=== PATIENT | female | born 1990 | race African-American/Black ===

== ENCOUNTER 2017-12-07 23:44 | Observation (INO) | payer SELFPAY ==
[~2017-12-07] VITALS: Ht 144.8 cm; Wt 100.0 kg
[~2017-12-07 23:44] MED LIST: NOHOMEMEDS
[2017-12-08 00:51] LABS: BASOPHIL (%) 0.3 % (0-1); EOSINOPHIL (%) 4.1 % (0-5); EOSINOPHIL COUNT 0.5 K/uL (0-0.3); HEMATOCRIT 31.5 % (36.0-46.0); HEMOGLOBIN 9.1 G/DL (11.9-15.5); IMMATURE GRANULOCYTE (%) 0.5 % (0.0-0.7); LYMPHOCYTE (%) 23.5 % (15-42); LYMPHOCYTE COUNT 3.1 K/uL (1.0-2.8); MCH 20.3 PG (29.0-34.0); MCHC 28.9 G/DL (30.0-36.0); MCV 70.2 FL (83-99); NEUTROPHIL (%) 63.6 % (45-76); NEUTROPHIL COUNT 8.3 K/uL (1.8-6.4); PLATELET COUNT 326 K/uL (156-360); RBC DIS.WIDTH-CV 19.8 % (11.8-14.6); RBC DIS.WIDTH-SD 49.2 % (39-53); RED BLOOD COUNT 4.49 M/uL (3.80-5.20)
[2017-12-08 01:16] LABS: TROP-I INTERPRETATION NEGATIVE; TROPONIN-I < 0.01 ng/mL (0.0-0.30)
[2017-12-08 01:42] LABS: ALBUMIN 3.8 g/dL (3.2-4.8)
[2017-12-08 01:43] LABS: CHLORIDE 107 mEq/L (99-109); POTASSIUM 3.7 mEq/L (3.7-5.4); SODIUM 140 mEq/L (136-147)
[2017-12-08 01:45] LABS: GLUCOSE 109 mg/dL (70-99); TOTAL PROTEIN 7.2 g/dL (6.4-8.3)
[2017-12-08 01:47] LABS: TOTAL BILIRUBIN 0.2 mg/dL (0.0-1.0)
[2017-12-08 01:48] LABS: ALKALINE PHOSPHATASE 69 IU/L (3-129); CREATININE 0.8 mg/dL (0.6-1.3); GFR ESTIMATE (CALCULATED) > 59 mL/min/
[2017-12-08 01:50] LABS: AST (GOT) 14 IU/L (2-34); UREA NITROGEN (BUN) 11 mg/dL (9-23)
[2017-12-08 01:51] LABS: ALT (GPT) 17 IU/L (3-49)
[2017-12-08 01:59] LABS: QUANTITATIVE HCG < 4.0 MIU/ML
[2017-12-08 04:30] LABS: BASE EXCESS -0.5 mEq/L (-3 to +3); BICARBONATE 24.9 mEq/L (22-26); COMMENTS - BLOOD GASES A+C+; DEVICE NC; METHEMOGLOBIN 0.9 % (0-1.5); O2 FLOW 4 L/MIN; PCO2 43 mm Hg (35-45); PO2 94 mm Hg (80-100); SITE LR; pH 7.37 (7.35-7.45)
[2017-12-08 07:27] LABS: IRON 19 MCG/DL (35-150); TRANSFERRIN (TIBC) 395.7 mg/dL (215-380); TRANSFERRIN SATUR. 5 % (20-55)
[2017-12-08 08:55] LABS: FOLIC ACID (FOLATE) 11.3 NG/ML (5.0-22.0)
[2017-12-08 10:30] VITALS: BP 119/67
[2017-12-08 15:59] VITALS: BP 124/64
[2017-12-08 19:59] VITALS: BP 129/71
[2017-12-09 01:20] VITALS: BP 135/77
[2017-12-09 04:00] VITALS: BP 120/65
[2017-12-09 07:35] VITALS: BP 117/70
[2017-12-09 07:54] LABS: HEMATOCRIT 31.3 % (36.0-46.0); MCH 20.3 PG (29.0-34.0); MCHC 28.8 G/DL (30.0-36.0); MCV 70.5 FL (83-99); NRBC (%) 0.1 /100 WBC (0-0); PLATELET COUNT 347 K/uL (156-360); RBC DIS.WIDTH-CV 19.9 % (11.8-14.6); RBC DIS.WIDTH-SD 50.4 % (39-53); RED BLOOD COUNT 4.44 M/uL (3.80-5.20); WHITE BLOOD COUNT 16.5 K/uL (4.1-10.2)
[2017-12-09 08:15] LABS: CHLORIDE 105 MEQ/L (99-109); CREATININE 0.7 MG/DL (0.6-1.3); GFR ESTIMATE (CALCULATED) > 59 mL/min/; GLUCOSE 152 mg/dL (70-99); POTASSIUM 4.4 MEQ/L (3.7-5.4); SODIUM 138 MEQ/L (136-147); UREA NITROGEN (BUN) 12 mg/dL (9-23)
[2017-12-09] MEDS ORDERED: PREDNISONE20 MG PO (10:55)
[2017-12-09] MEDS ORDERED: VENTOLIN HFA18 GM IH (10:55)
[2017-12-09] MEDS ORDERED: AZITHROMYCIN500 M1 PO (10:55)
[2017-12-09] MEDS ORDERED: IRON325 M1 PO (11:02)
[2017-12-09 12:11] VITALS: BP 129/88
== END 2017-12-09 13:10 | disposition home or self-care (01) ==
LOC: EME 23:44 → EDOF 12-08 05:16 → ENRESERV 12-08 05:20 → 2EAST 12-08 10:19
PROVIDERS: Emergency Medicine; Hospitalist; Physician Assistant
DX: J45.901 Unspecified asthma with (acute) exacerbation (principal); D72.829 Elevated white blood cell count, unspecified; R09.02 Hypoxemia; D50.9 Iron deficiency anemia, unspecified; Z82.5 Family history of asthma and other chronic lower respiratory diseases; F17.210 Nicotine dependence, cigarettes, uncomplicated; E66.01 Morbid (severe) obesity due to excess calories; Z68.42 Body mass index [BMI] 45.0-49.9, adult; Z91.040 Latex allergy status; Z91.048 Other nonmedicinal substance allergy status
CPT/HCPCS: 36600; 71046; 71250; 80048; 80053; 82607; 82746; 82803; 82948; 83540; 84466; 84484; 84702; 85025; 85027; 85379; 87502; 93005; 94640; 94640 76; 94799; 99202; 99281; 99284; G0378; J1650; J1815; J2930; J7030; J7644